=== PATIENT | male | born 1930 | race Caucasian/White ===

== ENCOUNTER 2017-07-23 13:22 | Emergency (ER) | payer BC | END 2017-07-23 14:20 | disposition home or self-care (01) | LOC: SCSER 13:22 | DX: Z46.6 Encounter for fitting and adjustment of urinary device (principal); F17.290 Nicotine dependence, other tobacco product, uncomplicated; Z79.899 Other long term (current) drug therapy; Z79.891 Long term (current) use of opiate analgesic | CPT/HCPCS: 99283 ==

== ENCOUNTER 2017-08-12 23:12 | Emergency (ER) | payer BC | END 2017-08-13 00:16 | disposition home or self-care (01) | LOC: SCSER 23:12 | DX: T83.098A Other mechanical complication of other urinary catheter, initial encounter (principal); F17.200 Nicotine dependence, unspecified, uncomplicated; N40.0 Benign prostatic hyperplasia without lower urinary tract symptoms ==

== ENCOUNTER 2017-09-15 09:30 | Inpatient (IN) | payer BC ==
[2017-09-15] MEDS ORDERED: ISOVUE-370 76%-LOCM 1 ML ONE (10:01)
[2017-09-15] MEDS ORDERED: Iopamidol 370 76% 50 ML VIAL FS ONE (10:01)
[2017-09-15] MEDS ORDERED: Adenosine 6 MG/2 ML VIAL ONE ×2 (10:44→12:28)
[2017-09-15] MEDS ORDERED: Diltiazem 125 MG/25 ML ONE ×3 (11:10→11:13)
[2017-09-15 12:02] LABS: #Lymphocytes 0.6 thou/uL (1.20-3.40); #Monocytes 0.7 thou/uL (0.11-0.59); #Neutrophils 9.5 thou/uL (1.40-6.50); %Basophils 0.4 % (0.0-1.0); %Eosinophils 0.1 % (0.0-10.0); %Lymphocytes 5.7 % (21.0-51.0); %Monocytes 6.8 % (0.0-10.0); %Neutrophils 87.1 % (42.0-75.0); Band 18 % (5-11); Hemoglobin 12.3 g/dL (14.0-18.0); Lymphocytes 8 % (21-51); MDiff Complete? YES; Mean Corpuscular HGB CONC 33.3 g/dL (32.0-36.0); Mean Corpuscular Hemoglobin 33.3 pg (27.0-31.0); Mean Corpuscular Volume 99.9 fL (78.0-98.0); Mean Platelet Volume 6.4 fL (7.4-10.4); Monocytes 5 % (0-10); Neutrophil 67 % (42-75); PLT Morphology Comment Appears Decreased; Platelet Count 117 thou/uL (130-400); Polychromasia SLIGHT = 2-3 cells (100X) (0-2/hpf); RBC Distribution Width 13.7 % (11.5-14.5); Reactive Lymphocytes 2 % (0-10); White Blood Cell (WBC) Count 10.9 thou/uL (4.8-10.8)
[2017-09-15 12:09] LABS: CKMB 1.7 ng/mL (0-6.6); Troponin I 0.253 ng/mL (< 0.028)
[2017-09-15 12:15] LABS: ALT (SGPT) Less than 7 U/L (8-55); AST (SGOT) 11 U/L (5-34); Albumin 3.2 g/dL (3.4-4.8); Alkaline Phosphatase 80 U/L (40-150); Anion Gap 10 mmol/L (10-20); BUN (Urea Nitrogen) 15 mg/dL (8.4-25.7); CK (CPK) 29 U/L (30-200); Calc. Creatinine Clearance 0 mL/min (70-130); Calcium 8.4 mg/dL (7.8-10.44); Carbon Dioxide 23 mmol/L (23-31); Chloride 105 mmol/L (98-107); Estimated GFR-MDRD 89; Globulin 2.7 g/dL (2.4-3.5); Glucose 86 mg/dL (83-110); Magnesium 1.5 mg/dL (1.6-2.6); Potassium 4.1 mmol/L (3.5-5.1); Protein, Total 5.9 g/dL (5.8-8.1); Sodium 134 mmol/L (136-145)
--- NOTE | 2017-09-15 12:24 | RAD ---
RADIOGRAPH CHEST 1 VIEW: Date: 09/15/17 Time: 1156 HOURS HISTORY: 87-year-old male with fever. COMPARISON: 02/21/05 is the most recent chest radiograph available. FINDINGS: There is a significantly displaced fracture at the surgical neck of the left proximal humerus, with a ngulation and foreshortening. This is probably chronic, but it occurred some time after the previous study of 2004. There are greater degrees of biapical pulmonary fibrotic stranding resulting in slight ly greater superior retraction of the ashley on the current study compared to previous. Nonspecific sma ll nodular densities are noted overlapping the bilateral lung apices. This area is partially obscured by partial overlap of soft tissues of the neck. Hyperinflation of the rest of the lungs consistent w ith COPD. No cardiomegaly. Tortuosity of the thoracic aorta. Irregular new pulmonary small density at left lateral lower lung zone which could be pulmonary scar, somewhat less likely to be acute pneumon ia. No consolidation. Vertebroplasty cement at lower thoracic spine. Osteopenia. IMPRESSION: 1. Emphysema. 2. Chronic biapical volume loss and fibrotic scarring, resulting in superior retraction of the ashley. 3. Small infiltrate-like density at the left lateral lower lung zone. This could represent pulmonary scar. Acute pneumonia is somewhat less likely, but not excluded. Follow-up is recommended. 4. Significantly displaced left humeral neck fracture, presumably not acute. Clinical correlation re commended. CATHY [] POS: LEIDA
[2017-09-15] MEDS ORDERED: Ondansetron HCl/PF 4 MG/2 ML Vial IVP PRN (16:09)
[2017-09-15] MEDS ORDERED: Ondansetron ODT 4 MG TAB SL PRN (16:09)
[2017-09-15] MEDS ORDERED: Acetaminophen 325 MG TAB PO PRN ×2 (16:09→16:53)
[2017-09-15] MEDS: Nicotine 21 MG PATCH TD SCH (16:38)
[2017-09-15] MEDS ORDERED: Bisacodyl 5 MG TAB PO PRN (16:53)
[2017-09-15] MEDS ORDERED: Acetaminophen 650 MG Suppository PR PRN (16:53)
[2017-09-15] MEDS ORDERED: Vancomycin HCl 1 GM in Premix Bag 1 BAG IVPB SCH (17:00)
[2017-09-15] MEDS ORDERED: Sodium Chloride 0.9% 1,000 ML IV SCH (17:00)
[2017-09-15] MEDS: Piperacillin/Tazobactam 3.375 GM in Sodium Chloride 0.9% 100 ML IVPB SCH (17:31)
[2017-09-15] MEDS: Vancomycin HCl 750 MG in Sodium Chloride 0.9% 250 ML 250 ML IVPB SCH (18:15)
[2017-09-15] MEDS ORDERED: Digoxin 0.5 MG/2 ML AMP SLOW IVP SCH (19:15)
--- NOTE | 2017-09-15 19:34 | PDOC.EVN ---
Event Note - Event Note Event Note: Pt was in SVT for 30 min. No carotid bruit. SVT resolved with L carotid massage, pt is now in sinus rhythm.
--- NOTE | 2017-09-15 22:53 | CT ---
CHEST CT WITH CONTRAST ABDOMEN CT WITH CONTRAST PELVIC CT WITH CONTRAST 09/15/17 HISTORY: Right upper quadrant pain. Evaluate for mass. COMPARISON: Stone protocol CT 07/11/08. TECHNIQUE: Chest, abdomen and pelvic CT are performed with IV contrast. Coronal reformatted images are submitte d for interpretation. Enteric contrast was also administered. FINDINGS: Limited evaluation due to patient position and poor contrast opacification. The scalp tomogram demons trates significant contrast still present in the left upper extremity venous system. Patient's kyphosis limits evaluation of the intrathoracic structures. CHEST CT: There appears to be a normal cardiac silhouette. No significant pericardial fluid. There is atheroscl erosis of the aorta. The ascending thoracic aorta is prominent measuring 4.1 x 4.0 cm. Coronary calci fications are identified. There is abnormal soft tissue density in the left perihilar region suggesti ng a possible mass/lymph node. This hypodensity measures 2.8 x 2.4 cm. There are small bilateral pleu ral effusions. There is a conglomeration of irregular lung parenchyma with possible cavitation in the right upper lobe. This areas measures at least 2.3 x 2.5 cm. There is a spiculated mass with adjacen t pleural changes in the left upper lobe measuring 0.7 x 1.5 cm. There is an additional spiculated ma ss in the left lower lobe measuring 0.9 x 1.0 cm. There are emphysematous changes. No pneumothorax. ABDOMEN CT: Ill-defined hypodensity. I the right hepatic lobe measuring 1.0 x 1.5 cm. There is a peripherally The re is a peripherally enhancing centrally hypodense area in the left hepatic lobe measuring 2.6 x 2.1 cm. The gallbladder is still somewhat prominent and expands inferior and lateral to the liver. Portal venous system is patent. Spleen is unremarkable. There is atrophy of the pancreas which is grossly normal. No gastrohepatic, retrocrural lymphadenopathy. No obvious periportal lymph nodes. Symmetric enhancement of the kidneys. Bilaterally, no obstructive uropathy. Despite the presence of oral contrast, evaluation of the alimentary canal is limited. Grossly, no en dence of high grade bowel obstruction. Ileocecal junction is normal. No obvious inflammation in the r egion of the cecal apex. Scattered fecal material in a nondistended, nondilated colon. Symmetric enhancement of the kidneys. Bilaterally, no obstructive uropathy. Nonobstructing calcificat ions in the lower pole of the left kidney are noted. PELVIC CT: Mildly prominent prostate gland. No pelvic mass, lymphadenopathy, free air or free fluid. Urinary amanuel dder is unremarkable. There is patchy demineralization throughout the osseous structures. There are presumed chronic compre ssion fractures in the mid thoracic spine, distal thoracic spine. Definite lytic/blastic lesions are not appreciated. Postoperative changes due to previous lumbar laminectomy defect is noted. IMPRESSION: 1. Irregularity of the lung parenchyma suggesting possible left lung parenchymal masses. 2. Left hilar mass suggesting lymphadenopathy/malignancy. 3. Probable metastatic lesion in the left hepatic lobe. Right hepatic lobe metastatic lesion can not be excluded. POS: LEIDA
[2017-09-15] MEDS: Cyclobenzaprine 10 MG TAB PO SCH (23:26)
[2017-09-15 23:27] LABS: Bilirubin Negative (Negative); Blood, Urine Large (Negative); Clarity CLOUDY (Clear); Glucose, Urine (Dipstick) Negative (Negative); Leukocyte Large (Negative); Nitrite Positive (Negative); Protein, Urine (Dipstick) Negative (Neg-Trace); Specific Gravity, Urine 1.036 (1.002-1.036); Urobilinogen 0.2 mg/dL (0.2-1.0); pH, Urine 5.5 (5.0-9.0)
[2017-09-15 23:29] LABS: Bacteria/HPF 1+ HPF (None Seen); Hyaline Casts/LPF 0-3 HYALINE CAST LPF (0-3 Hyaline); RBC/HPF GREATER THAN 50-TNTC HPF (0-3); Squamous Epithelial None Seen HPF (0-3)
[2017-09-16] MEDS: HYDROcodone/Acetaminophen 7.5/325 mg Tablet PO PRN (00:38)
[2017-09-16] MEDS: Piperacillin/Tazobactam 3.375 GM in Sodium Chloride 0.9% 100 ML IVPB SCH ×4 (00:40→18:26)
[2017-09-16] MEDS ORDERED: Ipratropium Bromide 2.5 ml Neb NEB PRN (01:19)
--- NOTE | 2017-09-16 02:28 | CON ---
DATE OF CONSULTATION: 09/15/2017 HISTORY OF PRESENT ILLNESS: Marino Flor is an 87-year-old white male that I evaluated in 1999, prior to him undergoing lumbar laminectomy by Dr. aErl Melton. Those records are no longer available. Since 12/2016, he has had 5 falls. The last two resulted in an arm fracture and then a wrist fracture. He would fall backwards, remembering falling, remembering hitting the floor with all of his falls. With the last fall, he was found to have a cavitary lung lesion when he was hospitalized at [facility] in [place]. He also was noted to have episodes of supraventricular tachycardia and was started on IV Cardizem for heart rate of 180 per minute. He was not aware of any palpitations, chest pain or worsening shortness of breath. He also was given digoxin. Cardizem 240 p.o. daily was started; however, he had worse problems with constipation and some leg edema which he never had before starting Cardizem.. Discussion was held in the hospital regarding possible radiofrequency ablation. The right upper lobe cavitary lesion was eventually felt to possibly be cancer. It was felt that with his advanced age and overall poor health that no further evaluation or treatment should be entertained. He smokes a pipe. He does have a history of EtOH abuse with rehab 30 years ago. 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 I saw him again on 08/10/2017. He continued to have problems with edema and constipation and the Cardizem was reduced to [address] Corley further reduced this to 120mg qd due to hypotension. Today, he woke with right-sided abdominal and chest pain. He also had 101 fever this morning. He was so weak that was unable to get out of bed. He came to the emergency room and found to be in supraventricular tachycardia and has been started on IV Cardizem. However , were somewhat limited by how much we can give by his blood pressure. He denies any chest pain. PAST MEDICAL HISTORY: Enlarged prostate, paroxysmal supraventricular tachycardia, probable lung cancer. MEDICATIONS: Diltiazem 120 daily, aspirin 81 daily, Flexeril 5 mg, MiraLax 17 grams. ALLERGIES: CIPRO, SULFA, TRAMADOL. PAST SURGICAL HISTORY: Vasectomy, back surgery, face surgery, hernia repair. SOCIAL HISTORY: He is recovering alcoholic. Continues to smoke a pipe. REVIEW OF SYSTEMS: Twelve-point review of systems otherwise unremarkable except for the pain as noted above. PHYSICAL EXAMINATION: VITAL SIGNS: Blood pressure 118/64, pulse of 66. HEENT: PERRL. NECK: Supple. CHEST: Clear. CARDIOVASCULAR: S1 and S2 are normal, without any S3, S4 or murmurs. ABDOMEN: Normal bowel sounds. EXTREMITIES: Revealed no clubbing, cyanosis, or edema. NEUROLOGIC: Grossly intact. SKIN: Warm and dry. LABORATORY DATA: EKG reveals supraventricular tachycardia with a rate of 170 per minute with diffuse ST and T-wave changes. Hemoglobin 12.3, hematocrit 37.0 , white count 10,900, platelets 117,000. Sodium 134, potassium 4.1, chloride 105, carbon dioxide 23, BUN 15, creatinine 0.82, troponin I 0.253. IMPRESSION: 1. Paroxysmal supraventricular tachycardia. He has had an increase in the episodes and with IV Cardizem, somewhat hypotensive. I have asked EP to evaluate him. 2. Probable lung cancer. 3. Pipe smoker. 4. History of EtOH abuse. 5. Temperature 101. 6. Right-sided thoracic and abdominal pain of uncertain etiology. PLAN: Electrophysiology has been consulted. Since his SVT is becoming harder to control, I feel the best option would be to have him undergo radiofrequency ablation so he would not have to deal with this problem. CHELSEY
--- NOTE | 2017-09-16 03:02 | CON ---
ELECTROPHYSIOLOGY CONSULTATION REPORT DATE OF CONSULTATION: 09/15/2017 REFERRING PHYSICIAN: Dr. Rutherford. 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 His problems are: 1. Recurrent supraventricular tachycardia. A. EKG from this admit revealing recurrent SVTs with a rate of 170 beats per minute with a short RP, which respond to adenosine, but recurred, eventually maintaining sinus rhythm on IV diltiazem. B. Prior SVT episodes in the [facility] in the past. 2. History of bladder stones, status post biopsy. 3. History of ETOH abuse not as abstinent. 4. History of pipe smoking. 5. Acute fever. ALLERGIES: CIPRO, SULFA. CURRENT MEDICATIONS: Including nicotine patch and also diltiazem p.o. Full medications are not available yet. SUBJECTIVE: Mr. Flor has been experiencing progressive palpitations, also fevers. He does report some poorly problems there was about 3 weeks ago, but removed about then a week ago. He is noted to have rapid heart rates. Adenosine was administered and terminated the arrhythmia, but quickly the irregular heart beating resume. Eventually, the patient required IV diltiazem and is repeated and this time, his rhythm maintained sinus rhythm. Otherwise, he is having no chest pains. No PND, orthopnea or lower extremity edema suggest fluid overload. He has got some right back pain, possibly rib issues. He has got history of scoliosis and chronic musculoskeletal discomforts are found. He has no PND or orthopnea. No stroke-like symptoms. No neurological deficits. Some urinary retention symptoms are noted. REVIEW OF SYSTEMS: Rest of twelve-point system otherwise unremarkable. PAST MEDICAL HISTORY: As above. No prior history of heart diseases or heart attacks was noted. He did have history of SVT, evaluated at [facility]. He was treated with diltiazem, recent diltiazem dosage had to be decreased. Possible liver cancer with pulmonary mets. SOCIAL HISTORY: The patient smokes pipes. He quit drinking in the past. He has been alcoholic in the past, but now reformed, and maintains abstinence. No drug use is noted. FAMILY HISTORY: Noncontributory. OBJECTIVE DATA: VITAL SIGNS: Blood pressure is 108/62, heart rate 74, respiratory rate is 18, patient is afebrile, oxygen saturation is between 94% to 100% on 2-4 liters of oxygen. LABORATORY DATA: White cell count is 10.9, hemoglobin 12.3, platelet count is 117. INR 1.0. Sodium 134, potassium 4.1, BUN is 15, creatinine is 0.82. AST and ALT are 11 and less than 7. Troponin I is 0.253. IMAGING: EKGs reviewed. Initial EKG reveals a narrow complex SVT at rate of 170 beats per minute. It is a short RP type of tachycardia. Closely following the QRS in about 100 milliseconds. Subsequent EKG reveals sinus rhythm, rate of 85 beats per minute, no signs of ST-T wave changes, narrow QRS, LA normal. Also adenosine administration for termination of the tachycardia then a transient complete AV block and then normal sinus rhythm ensues. PVCs are noted. ASSESSMENT AND PLAN: Mr. Flor is an 87-year-old man with prior history of non cardiac issues, who presents with recurrent tachycardia. He had a prior history of supraventricular tachycardia and was treated with diltiazem, but it had to be lowered due to borderline blood pressures. Now, he received IV adenosine, but the tachycardia resumed. Eventually, IV diltiazem had stabilized him and repeat IV adenosine has terminated tachycardia again which has not resumed on IV diltiazem. He has got borderline troponin change, but no other symptoms of myocardial infarction on his EKG, otherwise benign post-adenosine. He also had some fevers, possibly due to urinary issues with mild white cell count elevation. I discussed the likely diagnosis of supraventricular tachycardia with him. I detailed different mechanisms and treatment options for that. This could include continue medical therapy, albeit he seems to be failing diltiazem. I also detailed the ablation procedure, the pros and cons about it. They are at this point considering. Naturally, his advanced age and comorbidities, his risk for complications are somewhat higher. I detailed chance of a DVT, post- ablation recurrence, pericardial tamponade, catheter insertion site bleeds and even bradycardia requiring pacing. Family understands and they willing to consider. We will tentatively schedule him for Monday unless the decision is changed. In the meantime, IV diltiazem could be used, which could be stopped prior to the procedure. Thank you again for allowing me to participate in the care of this patient. CHELSEY
[2017-09-16 05:16] LABS: #Lymphocytes 0.6 thou/uL (1.20-3.40); #Monocytes 0.5 thou/uL (0.11-0.59); #Neutrophils 8.7 thou/uL (1.40-6.50); %Basophils 0.2 % (0.0-1.0); %Eosinophils 0.2 % (0.0-10.0); %Lymphocytes 6.2 % (21.0-51.0); %Monocytes 5.2 % (0.0-10.0); %Neutrophils 88.2 % (42.0-75.0); Hemoglobin 10.5 g/dL (14.0-18.0); Mean Corpuscular HGB CONC 34.8 g/dL (32.0-36.0); Mean Corpuscular Hemoglobin 33.9 pg (27.0-31.0); Mean Corpuscular Volume 97.5 fL (78.0-98.0); Mean Platelet Volume 6.7 fL (7.4-10.4); Platelet Count 110 thou/uL (130-400); RBC Distribution Width 13.4 % (11.5-14.5); Red Blood Cell (RBC) Count 3.09 mill/uL (4.70-6.10); White Blood Cell (WBC) Count 9.9 thou/uL (4.8-10.8)
[2017-09-16 05:22] LABS: Anion Gap 10 mmol/L (10-20); BUN (Urea Nitrogen) 13 mg/dL (8.4-25.7); Calc. Creatinine Clearance 46 mL/min (70-130); Calcium 8.5 mg/dL (7.8-10.44); Carbon Dioxide 23 mmol/L (23-31); Chloride 101 mmol/L (98-107); Estimated GFR-MDRD Greater than 90; Glucose 76 mg/dL (83-110); Potassium 3.8 mmol/L (3.5-5.1); Sodium 130 mmol/L (136-145)
[2017-09-16] MEDS: Enoxaparin Sodium 40 MG/0.4 ML SYRINGE SC SCH (08:31)
[2017-09-16] MEDS ORDERED: Vancomycin HCl 750 MG in Sodium Chloride 0.9% 250 ML 250 ML IVPB SCH (09:00)
[2017-09-16 10:12] VITALS: BMI 14.8
--- NOTE | 2017-09-16 12:54 | PDOC.PN ---
- Subjective Encounter Start Date: 09/16/17 Encounter Start Time: 08:00 Pt seen for followup re: SVT. Denies chest pain, shortness of breath, fevers or chills. - Objective Resuscitation Status: Resuscitation Status FULL:Full Resuscitation MAR Reviewed: Yes Vital Signs & Weight: Vital Signs (12 hours) Temp Pulse Resp BP Pulse Ox 09/16/17 07:20 98.3 F 62 20 115/58 L 95 09/16/17 03:25 98.6 F 62 20 93/51 L 94 L Weight Admit Weight 100 lb 1.438 oz Weight 100 lb 1.438 oz I&O: 09/15/17 09/16/17 09/17/17 06:59 06:59 06:59 Intake Total 871.4 Output Total 450 Balance 421.4 Result Diagrams: 09/16/17 04:29 09/16/17 04:29 EKG Reviewed by me: Yes (Tele: NSR) Phys Exam - Physical Examination Cachectic HEENT: moist MMs, sclera anicteric, oral pharynx no lesions, 2+ tonsils Neck: no nodes, no JVD, supple, full ROM Respiratory: no wheezing, no rales, no rhonchi, clear to auscultation bilateral Cardiovascular: RRR, no rub S1, S2 Gastrointestinal: soft, non-tender, no distention, positive bowel sounds Neurological: moves all 4 limbs Psychiatric: normal affect, A&O x 3 Dx/Plan (1) Paroxysmal SVT (supraventricular tachycardia) Code(s): I47.1 - SUPRAVENTRICULAR TACHYCARDIA Status: Acute Comment: digoxin /cardizem PRN. (2) Chest pain Code(s): R07.9 - CHEST PAIN, UNSPECIFIED Status: Acute Comment: pt reports pain is better. (3) Lung cancer Code(s): C34.90 - MALIGNANT NEOPLASM OF UNSP PART OF UNSP BRONCHUS OR LUNG Status: Suspected Comment: pt says he does not wish to have any further workup or treatment. He follows up with a dental officer at [facility] (4) Tobacco abuse Code(s): Z72.0 - TOBACCO USE Status: Chronic Comment: pt on nicotine replacement therapy (5) Sepsis Code(s): A41.9 - SEPSIS, UNSPECIFIED ORGANISM Status: Suspected Comment: continue IV antibiotics - Plan * . Review of Systems - Review of Systems Constitutional: negative: fever, chills, sweats, weakness, malaise Respiratory: negative: Cough, Shortness of Breath, SOB with Excertion, Pleuritic Pain, Wheezing Cardiovascular: chest pain, palpitations. negative: orthopnea, paroxysmal nocturnal dyspnea, edema, light headedness Gastrointestinal: negative: Nausea, Vomiting, Abdominal Pain, Diarrhea, Constipation, Melena, Hematochezia Genitourinary: negative: Dysuria, Frequency, Incontinence, Hematuria, Retention Musculoskeletal: negative: Neck Pain, Shoulder Pain, Arm Pain, Back Pain, Hand Pain, Leg Pain, Foot Pain - Medications/Allergies Allergies/Adverse Reactions: Allergies Allergy/AdvReac Type Severity Reaction Status Date / Time ciprofloxacin [From Cipro] Allergy Severe Swollen Verified 11/24/12 01:03 Lips ciprofloxacin HCl Allergy Severe Swollen Verified 11/24/12 01:03 [From Cipro] Lips Sulfa (Sulfonamide Allergy Mild Verified 11/24/12 01:02 Antibiotics) tramadol HCl [From Ultram] Allergy Mild Verified 11/24/12 01:03 Medications: Current Medications Acetaminophen (Tylenol) 650 mg PO Q4H PRN PRN Reason: Headache/Fever or Pain Acetaminophen (Tylenol) 650 mg MN Q4H PRN PRN Reason: Headache/Fever or Pain Hydrocodone Bitart/Acetaminophen ([place] 7.5/325) 1 tab PO Q4H PRN PRN Reason: Moderate Pain (4-6) Last Admin: 09/16/17 00:38 Dose: 1 tab Bisacodyl (Dulcolax) 10 mg PO DAILYPRN PRN PRN Reason: Constipation Cyclobenzaprine HCl (Flexeril) 15 mg PO 2300 [facility] Last Admin: 09/15/17 23:26 Dose: 15 mg Digoxin (Lanoxin) 0.25 mg SLOW IVP NOW [facility] Stop: 09/16/17 15:00 Enoxaparin Sodium (Lovenox) 40 mg SC 0900 [facility] Last Admin: 09/16/17 08:31 Dose: 40 mg Piperacillin Sod/Tazobactam (Sod 3.375 gm/ Sodium Chloride) 100 mls @ 200 mls/ hr IVPB Q6HR [facility] Last Admin: 09/16/17 05:14 Dose: 100 mls Vancomycin HCl 750 mg/ Sodium (Chloride) 250 mls @ 250 mls/hr IVPB 1900 TAM Last Admin: 09/15/17 18:15 Dose: 250 mls Diltiazem HCl 125 mg/ Sodium (Chloride) 125 mls @ 3 mls/hr IVPB INF TAM; 3 MG/ HR PRN Reason: Protocol Ipratropium [place] (Atrovent) 2.5 ml NEB [id number] PRN PRN Reason: SOB &/or Wheezing Miscellaneous Medication (Pharmacy To Dose) 1 each IVPB ONE PRN PRN Reason: Pharmacy to dose Stop: 10/15/17 16:53 Nicotine (Nicoderm Patch) 21 mg TD Q24H TAM Last Admin: 09/15/17 16:38 Dose: Not Given Sodium Chloride (Flush - Normal Saline) 10 ml IVF PRN PRN PRN Reason: Saline Flush
[2017-09-16] MEDS ORDERED: Digoxin 0.5 MG/2 ML AMP SLOW IVP SCH (13:00)
[2017-09-16] MEDS: Nicotine 21 MG PATCH TD SCH (13:49)
[2017-09-16] MEDS ORDERED: Magnesium 5 GM/10 ML Abboject SYRINGE ONE (14:39)
[2017-09-16] MEDS ORDERED: Adenosine 6 MG/2 ML VIAL ONE (14:39)
--- NOTE | 2017-09-16 15:37 | HP ---
PRIMARY CARE PROVIDER: Dr. Thaddeus Corley. CHIEF COMPLAINT: Abdominal pain. HISTORY OF PRESENT ILLNESS: Mr. Flor is a pleasant 87-year-old gentleman, who was seen at [facility] on 09/15/2017. He initially presented with a complaint of pain over his right lower ribs as well as upper abdominal wall on the right side. He reports that this has been g oing on for at least a couple of weeks. He was hospitalized at [facility] approximately 3 months ago. He reports that following that ho spitalization, he developed a rash over the sacral region. He reports that the lower chest wall/uppe r abdominal wall pain was accompanied by a mass in this region that was becoming bigger. The patient was actually hospitalized at [facility] in July for supraventricular tachycardia. He reports constipation at home as well as urinary retention. He self caths 3 times a day at home. He also reports 101 degree Fahrenheit fever that started today morning. He reports palpitations and tachycardia this morning. He reports significant weight loss over the last year. He also reports ge neralized weakness and was unable to get out of bed this morning. In the emergency room, he was found to be in supraventricular tachycardia. He was [facility] to [facility] for admission. REVIEW OF SYSTEMS: All other systems reviewed and found to be negative. PAST MEDICAL HISTORY: Kyphosis, Mycobacterium avium intracellular complex infection, benign prostati c hypertrophy, supraventricular tachycardia. PAST SURGICAL HISTORY: Vasectomy, spinal surgery, face surgery, bowel surgery, hernia surgery, finge r surgery. PSYCHIATRIC HISTORY: None. SOCIAL HISTORY: The patient denies any current alcohol use or recreational drug use. He smokes a pi pe every day. FAMILY HISTORY: Congestive heart failure in his father. CODE STATUS: I discussed his code status. He is FULL CODE. His is the surrogate decision make r. ALLERGIES: CIPROFLOXACIN, SULFA and TRAMADOL. CURRENT MEDICATIONS: [place] p.r.n., aspirin 81 mg daily, Flexeril 5 mg at bedtime and diltiazem 120 m g daily. PHYSICAL EXAMINATION: GENERAL: Mr. Flor is awake and alert, not in acute distress. VITAL SIGNS: Blood pressure is 105/44, pulse is 63, he is breathing at rate of 20 and saturating 98% on room air. He is afebrile. He appears cachectic. EYES: No scleral icterus. No conjunctival pallor. ENT: Moist mucosal membranes, no oropharyngeal erythema or exudates. NECK: Supple, nontender, trachea is midline. RESPIRATORY: Accessory muscles of breathing are not active. Chest wall movements are symmetric bila terally. LUNGS: Clear to auscultation without wheeze, rhonchi or crepitations. CARDIOVASCULAR: S1 and S2 are heard, regular. Peripheral pulses palpable. No carotid bruit, no per icardial rub. ABDOMEN: Soft, nontender, bowel sounds are heard, no hepatomegaly, no splenomegaly. NEUROLOGIC: Cranial nerves II-XII intact. Deep tendon reflexes are 2+. MUSCULOSKELETAL: He has tenderness over the right lower ribs. He also has a soft mass over the righ t side of the chest wall. SKIN: He has erythema in the sacral region, no open wounds, no elevated temperature. LYMPHATIC: No cervical lymphadenopathy. PSYCHIATRIC: Normal mood, normal affect, patient is oriented to person, place and time. LABORATORY AND IMAGING: Mr. Flor's labs and investigations were reviewed. I reviewed his elect rocardiogram, which at 1045 hours shows supraventricular tachycardia, no ST changes to suggest an acu te coronary syndrome. 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 I reviewed his chest x-ray, which shows left lower lobe infiltrate. He has leukocytosis with 10 ,900 white cells, of which 67% are neutrophils and 18% are bands, macrocytic anemia with hemoglobin 1 2.3, thrombocytopenia with platelet count 117,000, decreased sodium of 134, otherwise normal electrol ytes, normal creatinine, indeterminate troponin I of 0.253, decreased albumin of 3.2, otherwise unrem arkable liver profile and decreased magnesium of 1.5. ASSESSMENT AND PLAN: Mr. Flor is a pleasant 87-year-old gentleman who was seen at [facility] on 09/15/2017. His problem list includes: 1. Supraventricular tachycardia: He has received adenosine and Cardizem in the emergency room and i s currently in normal sinus rhythm. He will be admitted to the hospital for further workup. Cardiol ogy and Electrophysiology services will be consulted. 2. Sepsis: His presentation meets the criteria for sepsis, source of infection in either lung or so me other location. We will treat him with empiric antibiotics. We will request blood cultures and u rine studies. 3. Benign prostate hypertrophy. Patient does self-catheterization. We will continue to do the same in the hospital. 4. Severe protein-calorie malnutrition: We will consult dietitian for input. 5. Tobacco abuse: Patient has been counseled regarding tobacco cessation. He is requesting nicotin e patch. We will start him on nicotine replacement therapy. Many thanks for allowing me to participate in your patient's care. Please feel free to contact me wi th any questions or concerns. LEVEL OF RISK: High. LEVEL OF COMPLEXITY: High.
--- NOTE | 2017-09-16 17:33 | PRG-2 ---
DATE OF SERVICE: 09/16/2017 RESIDENT: Fer Alvarez M.D. ATTENDING PHYSICIAN: Karel Ching MD Physician note for a code green. SUBJECTIVE: Mr. Flor is an 87-year-old male with past medical history of known SVT previously controlled on oral diltiazem. He was admitted for SVT that has become refractory to oral diltiazem therapy. In the ER, he had received 2 rounds of adenosine before converting into sinus rhythm. He was started on diltiazem drip at this time. Per Dr. Rutherford, the patient's diltiazem drip had been tapered off. Code Detxer was called at 1315 hours. At this time, his vital signs showed blood pressure of 100/67, pulse of 163 with telemetry rhythm strip consistent with SVT. Accu-Chek at this time was 116. Initially, Dr. Perez from the [facility] group arrived to the room and initiated the code. Dr. Ching and myself arrived shortly after. The patient was attached to the AICD on the code card. He was noted to be in supraventricular tachycardia. Adenosine 6 mg was drawn and rapidly pushed IV followed by 2 normal saline flushes. Prior to pushing medications, the recorder device and the cardio defibrillator was activated and the patient's rhythm strip was monitored. His heart rate had a brief 3-4 second pause, at which time the patient became markedly symptomatic. His pulse returned and quickly went back into SVT. Nursing staff was instructed to drop 12 mg of adenosine. The first dose of adenosine was given at roughly 1322 hours. Second dose of adenosine 12 mg was given at 1325 hours. Again, the patient's heart tracing was recorded. He had a brief pause followed by return of sinus rhythm and then promptly jumped back into the 160s. While the phlembotomist was drawing the blood, patient vagaled for several seconds which managed to drop his heart rate into the 70s-80s. During this time, Dr. Rutherford was contacted and recommended that the patient be placed back on the diltiazem drip at 5 mg per hour until he has a cardiac ablation on Monday. Dr. Rutherford stated that a systolic blood pressure greater than 90 so long as the patient is asymptomatic is acceptable. Review of the patient's lab revealed that his magnesium was low at 1.5. He was given 2.5 grams of magnesium at 1332 hours. The code was determined to be complete and called off. The patient will remain on the telemetry unit at this time under close monitoring. Dr. Ching was present for the entire CODE. CHELSEY
[2017-09-16] MEDS: Vancomycin HCl 750 MG in Sodium Chloride 0.9% 250 ML 250 ML IVPB SCH (18:27)
[2017-09-16] MEDS: Cyclobenzaprine 10 MG TAB PO SCH (22:39)
[2017-09-17] MEDS: Piperacillin/Tazobactam 3.375 GM in Sodium Chloride 0.9% 100 ML IVPB SCH ×5 (00:28→23:13)
[2017-09-17] MEDS: HYDROcodone/Acetaminophen 7.5/325 mg Tablet PO PRN ×2 (00:29→23:09)
[2017-09-17] MEDS ORDERED: Ondansetron HCl/PF 4 MG/2 ML Vial IVP PRN (02:48)
[2017-09-17 05:03] LABS: #Eosinphils 0.1 thou/uL (0.0-0.7); #Lymphocytes 0.7 thou/uL (1.20-3.40); #Monocytes 0.4 thou/uL (0.11-0.59); #Neutrophils 4.3 thou/uL (1.40-6.50); %Basophils 0.4 % (0.0-1.0); %Eosinophils 1.5 % (0.0-10.0); %Lymphocytes 13.5 % (21.0-51.0); %Neutrophils 77.5 % (42.0-75.0); Hemoglobin 10.3 g/dL (14.0-18.0); Mean Corpuscular HGB CONC 34.5 g/dL (32.0-36.0); Mean Corpuscular Hemoglobin 33.7 pg (27.0-31.0); Mean Corpuscular Volume 97.7 fL (78.0-98.0); Mean Platelet Volume 6.5 fL (7.4-10.4); Platelet Count 109 thou/uL (130-400); RBC Distribution Width 13.2 % (11.5-14.5); Red Blood Cell (RBC) Count 3.07 mill/uL (4.70-6.10); White Blood Cell (WBC) Count 5.5 thou/uL (4.8-10.8)
[2017-09-17 05:24] LABS: Anion Gap 8 mmol/L (10-20); BUN (Urea Nitrogen) 9 mg/dL (8.4-25.7); Calc. Creatinine Clearance 46 mL/min (70-130); Calcium 7.9 mg/dL (7.8-10.44); Carbon Dioxide 26 mmol/L (23-31); Chloride 102 mmol/L (98-107); Estimated GFR-MDRD Greater than 90; Glucose 88 mg/dL (83-110); Potassium 3.3 mmol/L (3.5-5.1); Sodium 133 mmol/L (136-145)
[2017-09-17] MEDS ORDERED: Potassium Chloride 20 MEQ TAB PO SCH (08:15)
[2017-09-17] MEDS: Enoxaparin Sodium 40 MG/0.4 ML SYRINGE SC SCH (10:48)
[2017-09-17] MEDS ORDERED: Diltiazem 125 MG in Sodium Chloride 0.9% 100 ML IVPB SCH (11:30)
[2017-09-17] MEDS: Nicotine 21 MG PATCH TD SCH (13:25)
--- NOTE | 2017-09-17 15:25 | CON ---
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 Rather complicated medi noel history, who presented to the hospital with abdominal pain, right-sided. He was found to be SVT when he arrived. His temperature is 101. His oxygen saturation in the ER was normal. He is in the MICU now. He was at [facility] in July for apparently presumed SVT. They were happ y with the care over there. He has retention and apparently does self-catheterization several times a day at home. Additionally, he tells me he was hospitalized at [facility] for abnormal chest x-ray. Sputum re vealed eventually MAC. Additionally, there was some lung nodules seen which the civil cadd technician told t hem that it was more than likely cancer, but they required a biopsy. He refused biopsy and did not w ant any chemo or radiation. The patient is relatively cachectic. He is only 45 kg. His states he has been smoking a pipe f or many years, at least 29 years or so. He has been a very heavy and hard alcoholic, was drinking up to a bottle and a half of whiskey for many years until he underwent counseling at a [facility]. Instead of drinking alcohol, he is now smoking. He has previous history of pneumonia, history of MAC. Denies any coughing or wheezing. PAST MEDICAL HISTORY: Pertinent for SVT, alcohol abuse, tobacco abuse, anxiety, chronic pain. PAST SURGICAL HISTORY: Vasectomy, spinal surgery, bowel surgery, hernia surgery, and finger surgery. MEDICATIONS: From home include hydrocodone 7.5, Cardizem 120, Flexeril 5, aspirin. ALLERGIES: CIPRO, SULFA, and TRAMADOL. SOCIAL/FAMILY HISTORY: As noted. REVIEW OF SYSTEMS: Ten-point negative. PHYSICAL EXAMINATION: VITAL SIGNS: Sats are 92% on room air, temperature 97.9, blood pressure . GENERALL: He is awake, alert, responsive, cachectic. EXTREMITIES: No edema. CHEST: Minimal rhonchi. CARDIAC: Normal S1 and S2. No gallops. ABDOMEN: Soft. LABORATORY DATA: White count 5000, H and H 10 and 30, platelet count is low 109. Thrombocytopenia i s new. Electrolytes are normal. As noted, his chest x-ray on admission shows biapical scarring and hyperinflation on the left lower lung infiltrate and displaced humerus neck fracture. CT chest, abdomen, and pelvis was performed, which now shows multiple abnormalities, to note, biapica l irregular upper lung infiltrates, cavitary in the right lung, and a mass-like density in the left h ilar mass suggestive of adenopathy and abnormal liver lesions, both in the left and right lobe of the liver. IMPRESSION: 1. Probably chronic obstructive pulmonary disease. 2. Cachexia. 3. Abnormal x-ray. Biapical scarring, left lower lung mass-like density, left hilar mass, possibly metastatic disease. 4. MAC. 5. SVT. 6. History of heavy alcohol abuse. 7. History of tobacco use. PLAN: Pulmonary had a lengthy discussion with the patient and the patient's . 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 At this stage, he was on no further workup, which I agree. I am not so sure he is a candidate for MAC treatment, 3 drugs for a year. Because of his cac hexia, it is unlikely he would be able to tolerate that. If he wants to know whether these lesions i n the x-ray which are multiple suggestive of neoplastic process, an outpatient PET scan can be done. 70 minute consultation time, 50% in direct patient care.
--- NOTE | 2017-09-17 15:33 | PDOC.PN ---
- Subjective Encounter Start Date: 09/17/17 Encounter Start Time: 09:20 Pt seen for followup re: supraventricular tachycardia. Right sided chest pain is better, pt denies shortness of breath, cough, fevers or chills. - Objective Resuscitation Status: Resuscitation Status FULL:Full Resuscitation MAR Reviewed: Yes Vital Signs & Weight: Vital Signs (12 hours) Temp Pulse Resp BP BP Pulse Ox 09/17/17 15:30 97.9 F 65 16 110/61 99 09/17/17 11:10 97.0 F L 59 L 127/54 L 98 09/17/17 07:48 97.5 F L 59 L 17 95 09/17/17 07:25 97.5 F L 59 L 17 129/54 L 96 Weight Admit Weight 100 lb 1.438 oz Weight 100 lb 1.438 oz I&O: 09/16/17 09/17/17 09/18/17 06:59 06:59 06:59 Intake Total 871.4 1600 Output Total 450 1375 Balance 421.4 225 Result Diagrams: 09/17/17 04:23 09/17/17 04:23 EKG Reviewed by me: Yes (Tele: NSR) Phys Exam - Physical Examination cachectic HEENT: PERRLA, moist MMs, oral pharynx no lesions, 2+ tonsils Neck: no nodes, no JVD, supple, full ROM Respiratory: no wheezing, no rales, no rhonchi, clear to auscultation bilateral Cardiovascular: RRR, no rub S1, S2 Gastrointestinal: soft, non-tender, no distention, positive bowel sounds Neurological: moves all 4 limbs Psychiatric: normal affect, A&O x 3 Dx/Plan (1) Paroxysmal SVT (supraventricular tachycardia) Code(s): I47.1 - SUPRAVENTRICULAR TACHYCARDIA Status: Acute Comment: in NSR now, on diltiazem drip (2) Chest pain Code(s): R07.9 - CHEST PAIN, UNSPECIFIED Status: Acute Comment: Improving, likely musculoskeletal. Reviewed CT with radiologist, mass felt over R lower chest wall and upper abdo was probably gall bladder. (3) UTI (urinary tract infection) Status: Acute Comment: evidence of UTI, await urine cultures, continue Zosyn, discontinue vancomycin (4) Tobacco abuse Code(s): Z72.0 - TOBACCO USE Status: Chronic Comment: continue nicotine replacement therapy (5) Lung cancer Code(s): C34.90 - MALIGNANT NEOPLASM OF UNSP PART OF UNSP BRONCHUS OR LUNG Status: Suspected Comment: vs MAC. Pt does not want any further workup (6) Sepsis Code(s): A41.9 - SEPSIS, UNSPECIFIED ORGANISM Status: Resolved Comment: evidence of UTI, await urine cultures, continue Zosyn, discontinue vancomycin - Plan * . Review of Systems - Review of Systems Constitutional: negative: fever, chills, sweats, weakness, malaise Respiratory: negative: Cough, Shortness of Breath, SOB with Excertion, Pleuritic Pain, Wheezing Cardiovascular: chest pain. negative: palpitations, orthopnea, paroxysmal nocturnal dyspnea, edema, light headedness, other Gastrointestinal: negative: Nausea, Abdominal Pain, Diarrhea, Constipation, Melena, Hematochezia Genitourinary: negative: Dysuria, Frequency, Incontinence, Hematuria, Retention Skin: negative: Rash, Lesions, Roc, Bruising - Medications/Allergies Allergies/Adverse Reactions: Allergies Allergy/AdvReac Type Severity Reaction Status Date / Time ciprofloxacin [From Cipro] Allergy Severe Swollen Verified 11/24/12 01:03 Lips ciprofloxacin HCl Allergy Severe Swollen Verified 11/24/12 01:03 [From Cipro] Lips Sulfa (Sulfonamide Allergy Mild Verified 11/24/12 01:02 Antibiotics) tramadol HCl [From Ultram] Allergy Mild Verified 11/24/12 01:03 Medications: Current Medications Acetaminophen (Tylenol) 650 mg PO Q4H PRN PRN Reason: Headache/Fever or Pain Acetaminophen (Tylenol) 650 mg ND Q4H PRN PRN Reason: Headache/Fever or Pain Hydrocodone Bitart/Acetaminophen ([place] 7.5/325) 1 tab PO Q4H PRN PRN Reason: Moderate Pain (4-6) Last Admin: 09/17/17 00:29 Dose: 1 tab Bisacodyl (Dulcolax) 10 mg PO DAILYPRN PRN PRN Reason: Constipation Cyclobenzaprine HCl (Flexeril) 5 mg PO BID [facility] Enoxaparin Sodium (Lovenox) 40 mg SC 0900 TAM Last Admin: 09/17/17 10:48 Dose: 40 mg Piperacillin Sod/Tazobactam (Sod 3.375 gm/ Sodium Chloride) 100 mls @ 200 mls/ hr IVPB Q6HR TAM Last Admin: 09/17/17 13:24 Dose: 100 mls Vancomycin HCl 750 mg/ Sodium (Chloride) 250 mls @ 250 mls/hr IVPB 1900 TAM Last Admin: 09/16/17 18:27 Dose: 250 mls Diltiazem HCl 125 mg/ Sodium (Chloride) 125 mls @ 2 mls/hr IVPB INF TAM; 2 MG/ HR PRN Reason: Protocol Ipratropium [place] (Atrovent) 2.5 ml NEB [id number] PRN PRN Reason: SOB &/or Wheezing Miscellaneous Medication (Pharmacy To Dose) 1 each IVPB ONE PRN PRN Reason: Pharmacy to dose Stop: 10/15/17 16:53 Nicotine (Nicoderm Patch) 21 mg TD Q24H [facility] Last Admin: 09/17/17 13:25 Dose: 21 mg Ondansetron HCl (Zofran) 4 mg IVP Q6H PRN PRN Reason: Nausea/Vomiting Sodium Chloride (Flush - Normal Saline) 10 ml IVF PRN PRN PRN Reason: Saline Flush
[2017-09-17] MEDS ORDERED: RENALLY ADJUST ABX IVPB PRN (18:00)
[2017-09-17] MEDS: Cyclobenzaprine 10 MG TAB PO SCH (22:25)
[2017-09-18 04:55] LABS: #Basophils 0.1 thou/uL (0.0-0.2); #Eosinphils 0.1 thou/uL (0.0-0.7); #Lymphocytes 0.9 thou/uL (1.20-3.40); #Monocytes 0.4 thou/uL (0.11-0.59); #Neutrophils 2.9 thou/uL (1.40-6.50); %Basophils 1.2 % (0.0-1.0); %Eosinophils 2.2 % (0.0-10.0); %Lymphocytes 20.2 % (21.0-51.0); %Monocytes 9.1 % (0.0-10.0); %Neutrophils 67.3 % (42.0-75.0); Hemoglobin 11.1 g/dL (14.0-18.0); Mean Corpuscular HGB CONC 34.8 g/dL (32.0-36.0); Mean Corpuscular Hemoglobin 33.9 pg (27.0-31.0); Mean Corpuscular Volume 97.5 fL (78.0-98.0); Mean Platelet Volume 6.5 fL (7.4-10.4); Platelet Count 121 thou/uL (130-400); RBC Distribution Width 13.1 % (11.5-14.5); Red Blood Cell (RBC) Count 3.27 mill/uL (4.70-6.10); White Blood Cell (WBC) Count 4.3 thou/uL (4.8-10.8)
[2017-09-18 05:07] LABS: Anion Gap 9 mmol/L (10-20); BUN (Urea Nitrogen) 7 mg/dL (8.4-25.7); Calc. Creatinine Clearance 49 mL/min (70-130); Calcium 8.2 mg/dL (7.8-10.44); Carbon Dioxide 26 mmol/L (23-31); Chloride 102 mmol/L (98-107); Estimated GFR-MDRD Greater than 90; Glucose 76 mg/dL (83-110); Potassium 3.9 mmol/L (3.5-5.1); Sodium 133 mmol/L (136-145)
[2017-09-18] MEDS: Piperacillin/Tazobactam 3.375 GM in Sodium Chloride 0.9% 100 ML IVPB SCH ×2 (05:59→14:17)
[2017-09-18] MEDS: Enoxaparin Sodium 40 MG/0.4 ML SYRINGE SC SCH (07:45)
[2017-09-18] MEDS: Cyclobenzaprine 10 MG TAB PO SCH ×2 (09:15→23:40)
--- NOTE | 2017-09-18 09:52 | PRG ---
DATE OF SERVICE: 09/18/2017 This morning, he is awake, alert, responsive. He is better. He is weak. He is going for ablation. PHYSICAL EXAMINATION: VITAL SIGNS: Sats are 98% room air, respiration 28, temperature 97, pulse 59, blood pressure is 129/ 63. CHEST: Chest revealed decreased breath sounds without any wheezing. CARDIAC: Normal S1, S2, no gallops. ABDOMEN: Soft. LABORATORY: His white count is 4.3. Electrolytes are normal. IMPRESSION: 1. Multiple lung nodules along with the liver lesion consistent with a metastatic disease. Patient wants no further workup. 2. Mycobacterium avium complex culture from [facility]. PLAN: Continue supportive care, continue cardiac care. I may discontinue the antibiotics IV, switch over to oral medicine once he comes back from the procedure. I will follow.
[2017-09-18] MEDS ORDERED: Lidocaine 1% (PF) 30 ML VIAL ONE (13:16)
[2017-09-18] MEDS ORDERED: Fentanyl 100 MCG/2 ML VIAL ONE ×2 (13:22→15:42)
[2017-09-18] MEDS ORDERED: Isoproterenol 0.2 MG/1 ML AMP ONE (13:54)
[2017-09-18] MEDS ORDERED: ePHEDrine/0.9% NaCl/PF SYRINGE 50 mg/10 ml ONE (14:43)
[2017-09-18] MEDS ORDERED: Lidocaine 1% PF 5 ML VIAL ONE (14:43)
[2017-09-18] MEDS ORDERED: PHENYLEPHRINE-NS 100 MCG/ML 10 ML SYRINGE ONE (14:43)
[2017-09-18] MEDS ORDERED: Heparin 10,000 UNITS/1 ML VIAL ONE (14:48)
[2017-09-18] MEDS ORDERED: DOPamine 400 MG/D5W 250 ML 250 ML ONE (14:48)
--- NOTE | 2017-09-18 17:35 | PDOC.PN ---
- Subjective Encounter Start Date: 09/18/17 Encounter Start Time: 09:20 Pt seen for followup re: SVT. Denies chest pain, shortness of breath, fevers or chills. R-sided chest pain improved. - Objective Resuscitation Status: Resuscitation Status FULL:Full Resuscitation MAR Reviewed: Yes Vital Signs & Weight: Vital Signs (12 hours) Temp Pulse Resp BP Pulse Ox 09/18/17 08:13 97.6 F 59 L 28 H 123/63 98 09/18/17 08:00 97.6 F 59 L 28 H 97 Weight Admit Weight 100 lb 1.438 oz Weight 100 lb 1.438 oz I&O: 09/17/17 09/18/17 09/19/17 06:59 06:59 06:59 Intake Total 1600 2325 Output Total 1375 1500 Balance 225 825 Result Diagrams: 09/18/17 04:35 09/18/17 04:35 EKG Reviewed by me: Yes (Tele: NSR) Phys Exam - Physical Examination Constitutional: NAD HEENT: moist MMs Neck: supple Respiratory: clear to auscultation bilateral Cardiovascular: RRR Gastrointestinal: soft Neurological: moves all 4 limbs Psychiatric: normal affect Dx/Plan (1) Paroxysmal SVT (supraventricular tachycardia) Code(s): I47.1 - SUPRAVENTRICULAR TACHYCARDIA Status: Acute Comment: for ablation today (2) Chest pain Code(s): R07.9 - CHEST PAIN, UNSPECIFIED Status: Acute Comment: improving, likely MSK (3) UTI (urinary tract infection) Status: Acute Comment: All cultures negative so far. Will switch antibiotic to cefdinir and follow cultures. (4) Tobacco abuse Code(s): Z72.0 - TOBACCO USE Status: Chronic Comment: continue nicotine patch (5) Lung cancer Code(s): C34.90 - MALIGNANT NEOPLASM OF UNSP PART OF UNSP BRONCHUS OR LUNG Status: Suspected Comment: vs MAC. Pt does not want any further workup (6) Sepsis Code(s): A41.9 - SEPSIS, UNSPECIFIED ORGANISM Status: Resolved - Plan * . Review of Systems - Review of Systems Respiratory: negative: Cough, Shortness of Breath, SOB with Excertion, Pleuritic Pain, Wheezing Cardiovascular: chest pain. negative: palpitations, orthopnea, paroxysmal nocturnal dyspnea, edema, light headedness - Medications/Allergies Allergies/Adverse Reactions: Allergies Allergy/AdvReac Type Severity Reaction Status Date / Time ciprofloxacin [From Cipro] Allergy Severe Swollen Verified 11/24/12 01:03 Lips ciprofloxacin HCl Allergy Severe Swollen Verified 11/24/12 01:03 [From Cipro] Lips Sulfa (Sulfonamide Allergy Mild Verified 11/24/12 01:02 Antibiotics) tramadol HCl [From Ultram] Allergy Mild Verified 11/24/12 01:03 Medications: Current Medications Acetaminophen (Tylenol) 650 mg PO Q4H PRN PRN Reason: Headache/Fever or Pain Acetaminophen (Tylenol) 650 mg DE Q4H PRN PRN Reason: Headache/Fever or Pain Hydrocodone Bitart/Acetaminophen ([place] 7.5/325) 1 tab PO Q4H PRN PRN Reason: Moderate Pain (4-6) Last Admin: 09/17/17 23:09 Dose: 1 tab Bisacodyl (Dulcolax) 10 mg PO DAILYPRN PRN PRN Reason: Constipation Cyclobenzaprine HCl (Flexeril) 5 mg PO BID [facility] Last Admin: 09/18/17 09:15 Dose: Not Given Enoxaparin Sodium (Lovenox) 30 mg SC BID TAM Piperacillin Sod/Tazobactam (Sod 3.375 gm/ Sodium Chloride) 100 mls @ 200 mls/ hr IVPB Q6HR TAM Last Admin: 09/18/17 14:17 Dose: Not Given Diltiazem HCl 125 mg/ Sodium (Chloride) 125 mls @ 2 mls/hr IVPB INF TAM; 2 MG/ HR PRN Reason: Protocol Ipratropium [place] (Atrovent) 2.5 ml NEB [id number] PRN PRN Reason: SOB &/or Wheezing Miscellaneous Medication (Pharmacy To Dose) 1 each IVPB PRN PRN PRN Reason: Pharmacy to dose Nicotine (Nicoderm Patch) 21 mg TD Q24H TAM Last Admin: 09/17/17 13:25 Dose: 21 mg Ondansetron HCl (Zofran) 4 mg IVP Q6H PRN PRN Reason: Nausea/Vomiting Sodium Chloride (Flush - Normal Saline) 10 ml IVF PRN PRN PRN Reason: Saline Flush
[2017-09-18] MEDS: Nicotine 21 MG PATCH TD SCH (18:00)
[2017-09-18] MEDS ORDERED: Enoxaparin Sodium 30 MG/0.3 ML SYRINGE SC SCH (21:00)
--- NOTE | 2017-09-18 21:34 | ULT ---
BILATERAL LOWER EXTREMITY VENOUS DOPPLER: HISTORY: Ablation. Evaluation for thrombosis. COMPARISON: None. TECHNIQUE: Real-time, braga-scale, color Doppler, and spectral analysis of the bilateral lower extremity venous s ystem is performed. FINDINGS: The right greater saphenous/common femoral vein junction is poorly visualized, although the remainder of the veins in the right lower extremity appear decompressed. There is echogenic material within t he left common femoral vein and proximal femoral vein with some peripheral echogenic material. There is normal flow, augmentation, and compression of the left lower extremity venous system. 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 POS: TREVA
[2017-09-18] MEDS: Cefdinir 300 MG CAP PO SCH (23:40)
[2017-09-18] MEDS: HYDROcodone/Acetaminophen 7.5/325 mg Tablet PO PRN (23:41)
[2017-09-19 04:43] LABS: Band 14 % (5-11); Hemoglobin 11.8 g/dL (14.0-18.0); Lymphocytes 17 % (21-51); MDiff Complete? YES; Mean Corpuscular HGB CONC 33.7 g/dL (32.0-36.0); Mean Corpuscular Hemoglobin 32.5 pg (27.0-31.0); Mean Corpuscular Volume 96.4 fL (78.0-98.0); Mean Platelet Volume 6.5 fL (7.4-10.4); Monocytes 12 % (0-10); Neutrophil 56 % (42-75); PLT Morphology Comment Appears Adequate; Platelet Count 139 thou/uL (130-400); Red Blood Cell (RBC) Count 3.63 mill/uL (4.70-6.10); White Blood Cell (WBC) Count 4.1 thou/uL (4.8-10.8)
[2017-09-19 04:46] LABS: Anion Gap 13 mmol/L (10-20); BUN (Urea Nitrogen) 8 mg/dL (8.4-25.7); Calc. Creatinine Clearance 54 mL/min (70-130); Calcium 8.5 mg/dL (7.8-10.44); Carbon Dioxide 24 mmol/L (23-31); Chloride 101 mmol/L (98-107); Estimated GFR-MDRD Greater than 90; Glucose 71 mg/dL (83-110); Potassium 3.6 mmol/L (3.5-5.1); Sodium 134 mmol/L (136-145)
--- NOTE | 2017-09-19 08:11 | OP ---
DATE OF SERVICE: 09/18/2017 ELECTROPHYSIOLOGY STUDY AND RADIOFREQUENCY ABLATION REPORT REFERRING PHYSICIAN: Josue Rutherford M.D. REASON FOR PROCEDURE: Mr. Flor is an 87-year-old man with history of hypertension, not much car diac disease, kyphosis, who presents with almost incessant supraventricular tachycardia, prior episod es noted in June. He has been treated medically, but he could not tolerate diltiazem at full dose a nd has required multiple adenosine injections for termination. DESCRIPTION OF PROCEDURE: The patient received deep sedation by Anesthesia specialist. After adequa te level of sedation achieved, the right femoral vein was prepped and draped and anesthetized and wit h ultrasound guidance, two 8-Belizean short sheaths were introduced. Through this a decapolar and an o ctapolar catheter was advanced to the right atrium, right ventricle, His bundle, and CS position, pac ing mapping and recording was performed in each location. Following findings were noted. Baseline c ycle length was 1055, ND 174, QRS 61, QT 375, AH 101, HV 43 milliseconds. The sinus node recovery ti me was 1520 460 for 18 milliseconds. The AV Wenckebach cycle length was 460. Retrograde Wenck ebach cycle length was 380 milliseconds. Concentric retrograde VA conduction was seen. Atrial extra stimuli testing did reveal significant dual AV tai physiology. During atrial and ventricular pacin g, a catheter manipulation induction of narrow complex tachycardia was seen with a short RP type of t achycardia, VA conduction time was less than 100 milliseconds was seen. The ventricular overdrive pa cing maneuvers terminated tachycardia. evidence of AV node reentry tachycardia, slow pathway m odification was performed. The CS catheter was exchanged to a [employer] SF ST irrigated-tip cathete r and the slow pathway area. Multiple berkowitz were delivered with a total of 5 lesions were delivered, total ablation time was 3 minutes and 47 seconds. During the ablation, clear junctional rhythm was noted. Following the last burn, the Wenckebach cycle exchange to 540 milliseconds and no slow pathwa y was seen anymore. Also, no inducibility of the tachycardia was seen with repeated burst atrial pac ing maneuvers. This persisted with dopamine administration. CONCLUSION: 1. 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 2. Dual AV tai physiology of central retrograde conduction is noted. 3. Borderline sinus tai function appreciated. 4. Slow pathway ablation eliminated inducibility of AV node reentry tachycardia and increased the We nckebach cycle length of 2540 milliseconds. PLAN: Monitor for recurrent arrhythmias and bradycardia. If occurs, consider pacing. At the end of case, no change in cardiac silhouette is appreciated.
[2017-09-19] MEDS ORDERED: Enoxaparin Sodium 30 MG/0.3 ML SYRINGE SC SCH (09:00)
--- NOTE | 2017-09-19 09:12 | PRG ---
DATE OF SERVICE: 09/19/2017 SUBJECTIVE: This morning, he is better, status post ablation. OBJECTIVE: VITAL SIGNS: His heart rate is 78, respiration 24, temperature 97, sats 98%, blood pressure 120/78. GENERAL: He is weak. CHEST: Chest reveals decreased breath sounds, no wheezing. CARDIAC: Normal S1, S2, no gallops. ABDOMEN: Soft, no masses. LABORATORY DATA: Electrolytes are normal. White count 4000, H&H is unremarkable. Platelet count is normal. IMPRESSION: 1. Multiple lung nodules, probably metastatic disease. 2. Supraventricular tachycardia, improved. 3. Severe deconditioning. 4. Advanced age. 5. Heavy alcohol abuse, ongoing tobacco abuse. PLAN: Pulmonary aguayo, he can be transferred out of the MICU, okay with Cardiology, outpatient workup if patient desires to do so. Otherwise, symptomatic care.
[2017-09-19] MEDS: Cyclobenzaprine 10 MG TAB PO SCH (09:19)
[2017-09-19 11:37] VITALS: TEMP 97.6
[2017-09-19 12:09] LABS: INR-International Normal Ratio 1.1; PTT 30.6 SEC (22.9-36.1); Prothrombin Time 14.2 SEC (12.0-14.7)
[2017-09-19] MEDS: Cefdinir 300 MG CAP PO SCH (12:22)
[2017-09-19] MEDS ORDERED: Lidocaine 2% Jelly 5 ML TUBE TOP SCH (12:45)
--- NOTE | 2017-09-19 13:29 | CON ---
DATE OF CONSULTATION: 09/19/2017 HISTORY OF PRESENT ILLNESS: This is an 87-year-old white male who I have seen in my office and also seen at [facility]. I first met him a few months ago when he came in after a fall at [facility]. He had a fractured upper extremity and had had a neighbor try to pass a Sel[place] catheter to drain h is bladder and had developed some urethral trauma. He had a catheter placed by me there and was left in for a couple of months where his arm healed and then he went back to doing in and out catheteriza tion probably 2-3 weeks ago, and he had been doing okay with that until he had another episode in the evening what sounds like he fell and came in and was found to have supraventricular tachycardia, and I think undergone an ablation for that yesterday. He had trouble urinating, because he could not ge t up from the ablation and could not cath himself. Our nurse here on the side of the ICU was able to cath him. He had a little bit of blood in the urine and then again today that required help cathing . So, I think that is 2-3 times he has been catheterized since the procedure. The urine is getting clear, but he is having some urethral bleeding. Initially, when he came in through the ER, apparentl y had a catheter maybe a 20- or 22-Hungarian catheter placed, and since that time, he has had some ureth ral bleeding. He is on Lovenox. I do not see he is on any other blood thinner currently. He had a lower extremity ultrasound done that did show what they read as some chronic DVT and I do not know if he is going to require prolonged anticoagulation or a filter or if this is something that is old and does not pose any risk to him, but that is being evaluated. I think Dr. Dean has been asked to see him regarding a filter. In any event, they have been asking me to see him because he is a patient t hat is unable to empty his bladder by voiding. So, he has been on in and out catheterization at home and now he has got urethral bleeding and the question was what can we do, but he has urethral bleedi ng and possibly some urethral injury from the catheter placement or it may just be from in and out ca theterization and being on Lovenox. In any event, I spent a great deal of time talking with him and his , and we have come to a decision that what I think the best thing to do for him is to place a n 18-Hungarian coude tip catheter, and I will go ahead and get a urine culture obtained through it and paula mason is on cefepime now and it looks like he did have a culture done that so far is negative. I think t his catheter should drain his bladder well. It should help with any urethral oozing to help tap and let that heal, and we will leave it in for a few days. I could probably see him in my office next Mo nday, get the catheter backed out. At that point, hopefully, he would be more mobile and able to get up and move around and go back to in and out catheterization. The question was if he is on anticoag ulation is he going to bleed constantly from the penis or prostate or bladder when he caths and the a nswer is probably not. There are a fair number of patients that are on anticoagulation therapy that do in and out cath and the majority of them have occasional bleeding, but not a chronic bleeding. So , I think this is probably more related to perhaps some urethral trauma from initial catheterization in the ER and that he is continuing to bleed from that every time he has in and out cath done it is j ust aggravating it. So, I think if we are going to put a catheter and leave it in, let that heal up for a few days and it would probably be reasonable that he could resume his own in and out catheteriz ation. In any event, I will check on him if he is still here. Dr. Holt is covering for him if it is necessary. I have talked with his nurse about these orders.
[2017-09-19] MEDS: Nicotine 21 MG PATCH TD SCH (15:30)
[2017-09-19 15:43] VITALS: BP 147/70
--- NOTE | 2017-09-19 19:02 | PDOC.EVN ---
Event Note - Event Note Event Note: While working on discharge summary I noted that aspirin and diltiazem were listed as part of discharge medications. I called patient's phone and left voicemail that both medications should be discontinued.
[2017-09-19] MEDS ORDERED: Rivaroxaban 15 MG TAB PO SCH ×3 (21:00)
--- NOTE | 2017-09-20 01:42 | CON ---
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 He underwent an ablation. He has had an ultr asound of his left groin showing partially occlusive left femoral thrombus. He is going to be antico agulated after his ablation with Xarelto. He has had some bleeding as the patient self-catheterizes at home, but it has not been anything that has been out of control and Dr. Perrin believes that this should be okay with Xarelto. He has had no previous history of DVT. He has no bleeding diathesis. He has been noted to have multiple lung nodules and liver, small liver mass on a CT scan which he is not interested in pursuing diagnosis. PAST MEDICAL HISTORY: 1. Benign prostatic hypertrophy. 2. Supraventricular tachycardia. 3. Mycobacterium avium intracellulare complex infection. 4. Kyphosis. PAST SURGICAL HISTORY: 1. Vasectomy. 2. Spinal surgery. 3. Face surgery. 4. Bowel surgery. 5. Hernia surgery. 6. Finger surgery. 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 He smokes a pipe. REVIEW OF SYSTEMS: Ten-point review of systems is performed and is negative except as above. PHYSICAL EXAMINATION: GENERAL: This is a diminutive elderly almost cachectic gentleman resting comfortably in his hospital room. LUNGS: Clear bilaterally. HEART: Rhythm is regular. ABDOMEN: Soft and nontender. EXTREMITIES: There is no edema. VASCULAR: He has palpable femoral pulses bilaterally. ASSESSMENT AND PLAN: Deep venous thrombosis. I have discussed anticoagulation versus inferior vena cava filter placement with him. He really wanted information on the inferior vena cava filter for th e possibility of placing one in the future if he has trouble with the anticoagulants. We have discus sed filter placement, the need for aspirin after filter placement, and even placing a removable filte r that could be removed up to a year after surgery if needed. He understands and I can be contacted anytime if he decides he would like to have this done.
--- NOTE | 2017-09-20 03:08 | DIS ---
DATE OF ADMISSION: 09/15/2017 DATE OF DISCHARGE: 09/19/2017 PRIMARY CARE PROVIDER: Thaddeus Corley M.D. DISCHARGE DIAGNOSES: 1. Supraventricular tachycardia. 2. Deep vein thrombosis. 3. Probable lung malignancy versus MAC. CONDITION OF PATIENT ON THE DAY OF DISCHARGE: Stable. I assessed Mr. Flor on the day of discharge. He denies any chest pain or shortness of breath. Vital signs are stable. S1 and S2 are heard, regular. Lungs are clear to auscultation bilaterally. CONSULTATIONS DURING THIS HOSPITALIZATION: Cardiology, Dr. Rutherford; Pulmonary , Dr. Cardozo. Electrophysiology, Dr. Ireland. Urology, Dr. Perrin and CV Surgery, Dr. Alfredo Dean. DISCHARGE MEDICATIONS: Rivaroxaban 15 mg 2 times a day for 21 days, followed by 20 mg daily, Flexeril 5 mg daily, [place] p.r.n., MiraLax 17 grams daily. HOSPITAL COURSE: Mr. Flor is a pleasant 87-year-old gentleman who was admitted to [facility] for supraventricular tachycardia on 09/15/2017. Sepsis was also suspected because he met the sepsis criteria and urinalysis was suggestive of infection. He was started on empiric antibiotics. While on telemetry floor, he had runs of supraventricular tachycardia, which responded twice to carotid massage. On 09/16/2017, he had an episode that did not respond to carotid massage. He was started on a Cardizem drip. On the day of admission, he was seen by Cardiology and Electrophysiology services. Since he presented on Monday, plan was to do ablation on Monday, 04/2017. He also complained of right chest wall pain, which improved. He had CT scan of the chest, abdomen, and pelvis, which showed irregularity of the lung parenchyma suggesting left lung parenchymal masses, left hilar mass suggesting lymphadenopathy/malignancy and probable metastatic lesion in the left hepatic lobe. Right hepatic lobe metastatic lesion could not be excluded. He did not want any further investigations in this regard. Following ablation, he underwent bilateral lower extremity Dopplers because he appeared to have some thrombosis in the left femoral vein. 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 Various treatment options were discussed, including anticoagulation with warfarin or novel oral anticoagulants. Inferior vena cava filter was also discussed. He was seen by Cardiovascular Surgery. He made an informed decision to go on anticoagulation with rivaroxaban. He is aware of the bleeding risk. He was also seen by Urology service because of traumatic catheter insertion. Urology service will follow up with him as an outpatient, but he is going home with an indwelling [place] catheter. Preliminary blood cultures are negative at 48 hours. Urine culture grew yeast species. Antibiotics have been discontinued prior to discharge. On the day of discharge, his white count 4100, hemoglobin 11.8, platelet count 139,000, sodium 134, potassium 3.6, and creatinine 0.63. Many thanks for allowing me to participate in your patient's care. Please feel free to contact me with any questions or concerns. DISCHARGE DESTINATION: Home. TOTAL AMOUNT OF TIME SPENT COORDINATING THIS DISCHARGE: 33 minutes. ADDENDUM ON SEPTEMBER 23, 2017: Patient's discharge diagnoses also include: Sepsis secondary to urinary tract infection, present on admission. CHELSEY
--- NOTE | 2017-09-20 03:27 | PRG ---
DATE OF SERVICE: 09/19/2017 SUBJECTIVE: Mr. Flor since doing well one day after he has radiofrequency ablation procedure. He did have a short bleeding episodes from the right femoral venous access sites, but that eventually resolved. 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 Also in the right side where the veins were accessed for the procedure. He has no signifi cant hematoma residual, his breathing is easier. His diltiazem is discontinued. He is feeling much better. OBJECTIVE: VITAL SIGNS: Blood pressure is 147/70, heart rate 71, respiration is 24, temperature 97.6 degrees Fa hrenheit. GENERAL: He is alert and oriented man in no apparent distress. NECK: Supple. Jugular veins are not distended. LUNGS: Coarse with crackles. HEART: Sounds regular to rate rhythm. No murmur or gallop. ABDOMEN: Benign. Bowel sounds positive. EXTREMITIES: Lower extremities, no clubbing or cyanosis. LABORATORY DATA: EKG was reviewed revealing a sinus rhythm. No significant bradycardia. Mild sinus bradycardia at 850 beats per minute seen only. No AV blocks are noted. White count is 4.1, hemoglobin 11.8, platelet count is 139. Sodium 134, potassium 3.6, BUN is 13, cr eatinine 0.63. ASSESSMENT AND PLAN: Mr. Flor is a pleasant 87-year-old man with extensive medical history, pos sible liver metastases and lungs in history. He has admitted with recurrent rapid heartbeats. The t achycardia was continued. SVT and EP study was performed demonstrating even oriented tachycardia. D ual AV tai physiology. He underwent slow pathway ablation. He tolerated the procedure well. No r ecurrence of the arrhythmia seen afterwards, currently stable. Of note, he is also noted to have a c hronic left lower extremity DVT, which was elevated. The procedure was preexisting. For this reason , he was started on Xarelto, which I agree with. b.i.d. for the next week or so. Subsequently once a day 200 mg is reasonable. A routine follow up requested in 4 to 6 weeks or early if symptoms dictate. I discussed the chance for bleeding with the patient and family, they understand and they will comply with some limited activities at least early phase of healing from the procedure.
--- NOTE | 2017-09-20 10:23 | PQF ---
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 Clinical indicators are provided on the bottom of this form for your review Please check appropriate box(s) to clarify if the following diagnosis has been ruled in or ruled out: SEPSIS secondary to urinary tract infection (CDI/Coding list diagnosis here) [ X ] Ruled in diagnosis [ ] Continue to treat [ X ] Resolved [ ] Ruled out diagnosis [ ] Cannot rule out diagnosis [ ] Other diagnosis [ ] Unable to determine In addition, please specify: Present on Admission (POA): [ X ] Yes [ ] No [ ] Unable to determine For continuity of documentation, please document condition throughout progress notes and discharge summary. Thank You. CLINICAL INDICATORS - SIGNS / SYMPTOMS / LABS To support the diagnosis- H&P- Sepsis: His presentation meets the criteria for sepsis, source of infection in either lung or other location. To support resolution of diagnosis- RISK FACTORS To support diagnosis. Suspected MAC infection TREATMENTS To support diagnosis- Empiric antibiotics. (This form is maintained as a part of the permanent medical record) 2014 [employer]. All Rights Reserved Mary [email or web address] [phone] [email or web address]
--- NOTE | 2017-09-25 17:57 | EKG ---
Test Reason : RHYTHM CHANGE Blood Pressure : / mmHG Vent. Rate : 070 BPM Atrial Rate : 070 BPM P-R Int : 160 ms QRS Dur : 072 ms QT Int : 396 ms P-R-T Axes : 078 046 062 degrees QTc Int : 427 ms Normal sinus rhythm Nonspecific ST and T wave abnormality Abnormal ECG When compared with ECG of 15-MAY-2013 12:13, Nonspecific T wave abnormality, worse in Lateral leads Confirmed by DR. Neelam BROWN ([id number]) on 09/25/2017 5:57:09 PM Referred By: VANDANA ROSAS Confirmed By:DR. Neelam BROWN
== END 2017-09-19 17:57 | disposition home or self-care (01) | DRG 853 ==
LOC: ERS 09:30 → EEVIPCON 09:30 → 2NO 16:17 → IMCU/EMU 09-16 14:04
PROVIDERS: ADMIT Internal Medicine; ATTEND Internal Medicine
PROC: 02583ZZ Destruction of Conduction Mechanism, Percutaneous Approach (ICD-10-PCS; principal; 2017-09-18)
PROC: 4A023FZ Measurement of Cardiac Rhythm, Percutaneous Approach (ICD-10-PCS; 2017-09-18)
PROC: 4A0234Z Measurement of Cardiac Electrical Activity, Percutaneous Approach (ICD-10-PCS; 2017-09-18)
DX: A41.9 Sepsis, unspecified organism (principal); E43 Unspecified severe protein-calorie malnutrition; I47.1 Supraventricular tachycardia; Z68.1 Body mass index [BMI] 19.9 or less, adult; R64 Cachexia; B37.49 Other urogenital candidiasis; C34.90 Malignant neoplasm of unspecified part of unspecified bronchus or lung; C78.7 Secondary malignant neoplasm of liver and intrahepatic bile duct; C77.1 Secondary and unspecified malignant neoplasm of intrathoracic lymph nodes; I82.512 Chronic embolism and thrombosis of left femoral vein; D69.6 Thrombocytopenia, unspecified; N40.0 Benign prostatic hyperplasia without lower urinary tract symptoms; F10.21 Alcohol dependence, in remission; M40.209 Unspecified kyphosis, site unspecified; Z79.01 Long term (current) use of anticoagulants; J44.9 Chronic obstructive pulmonary disease, unspecified; F17.290 Nicotine dependence, other tobacco product, uncomplicated; R07.9 Chest pain, unspecified
CPT/HCPCS: 36415; 36416; 71045; 71260; 74177; 80048; 80053; 81003; 81015; 82553; 83735; 84484; 85007; 85025; 85027; 85610; 85730; 87040; 87086; 93005; 93010; 93306; 93613; 93623; 93653; 93970; 96365; 96366; 96375; 96376; A4353; C1730; C1769; J0153; J1160; J1265; J1644; J1650; J2001; J2543; J3010; J3370; J3475; J7050; Q0162